=== PATIENT | female | born 2000 | race Caucasian/White ===

== ENCOUNTER 2023-05-06 09:56 | Emergency (ER) | payer BC, SELFPAY ==
[2023-05-06 10:03] VITALS: BP 123/78; PULSE 122; RESP 18; TEMP 38.4; O2SAT 96; BMI 32.8
--- NOTE | 2023-05-06 12:18 | CT_ITS ---
WS: [id number] CT ABDOMEN AND PELVIS WITH CONTRAST HISTORY: left flank and lower abd pain TECHNIQUE: Imaging performed of the abdomen and pelvis with IV contrast. Single phase imaging of the abdomen. Coronal and sagittal reformats are submitted. All CT scans at [facility] use at [address] one of these dose optimization techniques: automated exposure control; mA and/or kV adjustment per patient size (includes targeted exams where dose is matched to clinical indication); or iterative re construction. IV CONTRAST: Omnipaque 350; 100 mL IV. Oral contrast: No DLP: 1042.72 mGy.cm COMPARISON: None available. Lower thorax: Lung bases are clear. Heart is normal size. No hiatal hernia. Liver/biliary system: Normal size with no intrahepatic dilatation. Gallbladder: Normal. No gallstones or wall thickening. No pericholecystic fluid. Pancreas: Normal size pancreas and pancreatic duct. No adjacent inflammation. Spleen: Normal size spleen. No mass or infarct. Adrenal glands: Normal. Right kidney: Nonobstructing 2 mm calcification lower pole otherwise negative. Left kidney: Normal size kidney. There is mild perinephric stranding. Loss of the normal corticomedul linus junction involving several locations throughout the kidney. There is an area of decreased enhanc ement and attenuation which is rounded in the central kidney measuring 2.6 x 2.7 cm. Towards the supe rior pole there is additional area of decreased enhancement noted bilaterally. There is no obstructio n. Aorta: Normal. Lymphadenopathy: Small central mesenteric lymph nodes. Free fluid: None. GI tract: Unremarkable. Abdominal wall: Unremarkable abdominal wall. No hernia. Pelvis: No free fluid or adenopathy within the pelvis. Bones: Unremarkable. IMPRESSION: 1. Areas of decreased enhancement attenuation within the LEFT kidney. Findings are consistent with m oderate pyelonephritis with no obstructive uropathy. Developing abscess in the central LEFT renal cor stacey suspected. No liquefaction at this time. 2. Normal appendix. 3. No renal obstruction.
--- NOTE | 2023-05-06 12:20 | W.ED.EXTPRO ---
HPI - Extremity Problem General: Chief complaint: Extremity Injury, Lower Stated complaint: leg pain, left abd pain Time Seen by Provider: 05/06/23 09:59 History of Present Illness: This patient presents to the emergency department, by her family. She states that she has been ill since approximately Wednesday after being corrected by her significant other. She states that she has had left flank pain and now is having some bilateral hip and upper leg pain. She states that the back pain began initially. There was some is been associated nausea and vomiting with her symptoms. There is also been subjective fever. She has not had any other constitutional symptoms to include dysuria vaginal bleeding, cough, sore throat etc. She is normally in good health takes no daily medications. Her last menstrual period was 1 week ago. There is a remote history of kidney stones both in her history as well as in her family history. She has not had any abdominal surgeries. Denies any other exposure to infectious disease. He apparently was seen at [facility] yesterday and told she had said she had some abnormal labs but she cannot provide me those results and their labs do not cross into our system. Associated symptoms: Reports fever(s); Deny chest pain or rash Review of Systems Const: Reports: fever(s) and body aches Eyes: Denies: change in vision ENMT: Denies: throat pain, odynophagia, nasal discharge or nasal congestion Card: Denies: chest pain or palpitations Resp: Denies: dyspnea, productive cough or non-productive cough GI: Reports: abdominal pain, nausea and vomiting; Denies: diarrhea : Reports: flank pain Musc: Denies: neck pain, extremity swelling or muscle weakness Skin/Breast: Denies: rash Neuro: Denies: headache(s), numbness in extremities or weakness in extremities Endo: Denies: polyuria or polydipsia [facility] ED Female Reproductive History: Date of last menstrual period: 04/20/23 Physical Exam Narrative: EXAM NARRATIVE: She is alert no acute distress answers questions in a goal-directed fashion. Const: COMMON NORMALS: no acute distress, average body habitus and patient oriented x3 GENERAL APPEARANCE: cooperative and comfortable HENMT: COMMON NORMALS: normocephalic, Normal nasal mucous membranes and turbinates present and moist oral mucous membranes HEAD & SCALP: normocephalic NOSE: Normal nasal mucous membranes and turbinates present Eye: COMMON NORMALS: Equal, round and reactive pupils present, EOMs intact bilaterally and conjunctivae normal CONJUNCTIVA: Yes conjunctivae normal PUPIL: Yes Equal, round and reactive pupils present Neck/C-Spine: COMMON NORMALS: full ROM, no lymphadenopathy and supple Chest: COMMONS NORMALS: normal inspection of the chest and normal palpation of entire chest wall Resp: COMMON NORMALS: normal respiratory effort, No retractions, No use of accessory muscles and clear to auscultation bilaterally AUSCULTATION: clear to auscultation bilaterally Cardio: COMMON NORMALS: regular rate, regular rhythm, No murmurs present (Cardio) and Peripheral pulses 2+ throughout RATE: regular rate RHYTHM: regular rhythm PERIPHERAL PULSES: Peripheral pulses 2+ throughout GI: OTHER: She has tenderness to the left flank to palpation but no rebound or guarding to the remainder of her abdominal examination. There is no suprapubic tenderness or fullness. : BLADDER/KIDNEY EXAM: Yes CVA tenderness (Mild left) Back/Pelvis: COMMON NORMALS: thoracic and lumbar spine normal to inspection, no thoracic nor lumbar tenderness, thoraco-lumbar ROM normal and straight leg raise negative bilaterally GENERAL BACK: Yes CVA tenderness (Mild left) Extremity: COMMON NORMALS: normal to inspection, full ROM, capillary refill normal, no calf tenderness and no pedal edema Neuro: COMMON NORMALS: patient oriented x3, moves all extremities, no focal motor deficits and no sensory deficits noted CRANIAL NERVES: Yes CN normal except as noted Psych: COMMON NORMALS: mental status grossly normal Skin: COMMON NORMALS: no rashes or lesions noted and turgor normal GENERAL SKIN EXAM: no rashes or lesions noted and turgor normal Course Reevaluation(s): Reevaluation #1: Patient and family are informed of her findings. Concern is that she may be having an early developing abscess of the involved kidney per radiology report and the lack of allergy support precludes us admitting at this facility in case she needs percutaneous draining or other procedures for such developing abscess. We are attempting to locate a facility that has capacity. Currently we are on consideration at [facility] as well as [facility]. Patient and family were informed of transfer difficulties. She is currently clinically stable Time: 17:59 Consultations: Consultation #1: Patient was excepted at [facility] in [place] under Dr. Hernandez. Time: 18:18 Vital Signs: Vital signs: Vital Signs Temperature 101.2 F H 05/06/23 10:03 Pulse Rate 105 H 05/06/23 16:00 Respiratory Rate 17 05/06/23 16:00 Blood Pressure 125/66 05/06/23 16:00 Pulse Oximetry 96 05/06/23 16:00 Oxygen Delivery Me thod Room Air 05/06/23 16:00 MDM - Extremity (Nontraumatic) Medical Decision Making This patient presented to the emergency department with approximately 4 to 5-day history of progressive left flank pain associated with some radiation of pain down into both anterior legs. There was associated fever and nausea with vomiting and poor p.o. tolerance. She denied any contributory history other than the fact she had kidney stones as a younger teenager and there is a strong family history of kidney stones however she has not had any stone issues for the last 4 to 5 years. Clinical examination was was notable for her being febrile tachycardic with left flank tenderness. No other findings to suggest any other etiology to her symptoms at the time of this examination. Ancillary studies obtained revealed a leukocytosis and abnormal urinalysis and most specifically a CT scan which showed findings consistent with pyelonephritis but concerning for possible early cortical renal abscess. The patient received IV fluids, IV antibiotics and analgesics in the emergency department. Because of the concern about developing abscess and the lack of urology support at this facility a widening search for accepting facilities was undertaken. Eventually were able to find her an accepting physician at [facility]. Remained stable for transfer. Lab Data I reviewed the patient's lab results. 05/06/23 12:29 05/06/23 12:29 Laboratory Results WBC 19.19 10^3/uL (3.29-11.43) H 05/06/23 12:29 RBC 4.44 10^6/uL (3.85-5.65) 05/06/23 12:29 Hgb 13.00 g/dL (11.27-16.99) 05/06/23 12:29 Hct 37.7 % (36-47) 05/06/23 12: MCV 84.9 fl (85-98) L 05/06/23 12: MCH 29.3 pg (27-33) 05/06/23 12: MCHC 34.5 g/dL (30-55) 05/06/23 12: RDW 11.5 % (12.1-15.1) L 05/06/23 12: Plt Count 300 10^3/cmm (157-399) 05/06/23 12: MPV 10.5 fL (7.4-10.4) H 05/06/23 12: Neut % (Auto) 84.2 % 05/06/23 12: Lymph % (Auto) 5.6 % 05/06/23 12: [place] % (Auto) 9.2 % 05/06/23 12: Eos % (Auto) 0.0 % 05/06/23 12: Baso % (Auto) 0.2 % 05/06/23 12: Neut # (Auto) 16.17 10^3/uL (1.8-7.7) H 05/06/23 12: Lymph # (Auto) 1.1 10^3/uL (0.8-4.8) 05/06/23 12: [place] # (Auto) 1.8 10^3/uL (0.2-0.9) H 05/06/23 12: Eos # (Auto) 0.0 10^3/uL (0.0-0.8) 05/06/23 12: Baso # (Auto) 0.0 10^3/uL (0.0-0.1) 05/06/23 12: Nucleated RBC % (auto) 0 % 05/06/23 12: Nucleated RBCs # 0.0 /100WBC 05/06/23 12: Sodium 132 mmol/L (136-145) L 05/06/23 12: Potassium 3.8 mmol/L (3.5-5.1) 05/06/23 12: Chloride 98 mmol/L (98-107) 05/06/23 12: Carbon Dioxide 23 mmol/L (22-29) 05/06/23 12: Anion Gap 14.8 (5-19) 05/06/23 12: BUN 8 mg/dL (6-20) 05/06/23 12: Creatinine 0.7 mg/dL (0.5-0.9) 05/06/23 12: GFR Calculation 103.7 mL/min (90-130) 05/06/23 12: Glucose 118 mg/dL (65-115) H 05/06/23 12: Calculated Osmolality 273 mOsm/kg (285-295) L 05/06/23 12: Lactic Acid 1.0 mmol/L (0.5-2.2) 05/06/23 12: Calcium 9.5 mg/dL (8.5-10.5) 05/06/23 12: Total Bilirubin 1.0 mg/dL (0.15-1.2) 05/06/23 12: AST 21 U/L (0-32) 05/06/23 12: ALT 40 U/L (0-33) H 05/06/23 12: Alkaline Phosphatase 199 U/L (35-105) H 05/06/23 12: Total Protein 7.9 g/dL (6.6-8.7) 05/06/23 12: Albumin 4.1 g/dL (3.5-5.2) 05/06/23: Globulin 3.8 g/dL (1.3-4.6) 05/06/23 12: HCG, Qual Negative (Negative) 05/06/23 12: Urine Color Yellow (Yellow) 05/06/23 15: Urine Appearance Sl hazy (CLEAR) A 05/06/23 15:03 Urine pH 5 (5-7) 05/06/23 15:03 Ur Specific [place] 1.010 (1.005-1.030) 05/06/23 15:03 Urine Protein 1+ (Negative) H 05/06/23 15:03 Urine Glucose (UA) Norm (Normal) 05/06/23 15:03 Urine Ketones 2+ (Negative) H 05/06/23 15:03 Urine Blood 2+ (Negative) H 05/06/23 15:03 Urine Nitrate Negative (Negative) 05/06/23 15: Urine Bilirubin Neg (Negative) 05/06/23 15:03 Urine Urobilinogen 4 mg/dL (Negative) H 05/06/23 15:03 Ur Leukocyte Esterase Trace (Negative) H 05/06/23 15:03 Urine RBC 0-4 /hpf (0-2) H 05/06/23 15:03 Urine WBC 0-4 /hpf (0-5) H 05/06/23 15:03 Ur Squamous Epith Cells 10-15 /hpf (0-5) H 05/06/23 15:03 Ur Transition Epith Cell 0-4 /hpf 05/06/23 15:03 Amorphous Sediment Not Reportable 05/06/23 15:03 Urine Bacteria Trace /hpf (NONE) 05/06/23 15:03 Urine Mucus Trace /hpf 05/06/23 15:03 All radiology interpretation(s) finalized by discharge Discharge Plan Discharge Patient Disposition: Xfer Short-Term Hosp Clinical Impression: Pyelonephritis of left kidney Condition: Stable Coding Level of Care Code ED Sales And Production Manager for Niki More
[2023-05-06 12:43] LABS: Basophils % 0.2 %; Hematocrit 37.7 % (36-47); Lymphocytes # 1.1 10^3/uL (0.8-4.8); Lymphocytes % 5.6 %; Mean Corpuscular HGB Conc 34.5 g/dL (30-55); Mean Corpuscular Hemoglobin 29.3 pg (27-33); Mean Corpuscular Volume 84.9 fl (85-98); Mean Platelet Volume 10.5 fL (7.4-10.4); Monocytes # 1.8 10^3/uL (0.2-0.9); Monocytes % 9.2 %; Neutrophils # 16.17 10^3/uL (1.8-7.7); Neutrophils % 84.2 %; Nucleated Red Blood Cells % 0 %; Platelet Count 300 10^3/cmm (157-399); Red Blood Count 4.44 10^6/uL (3.85-5.65); Red Cell Distribution Width 11.5 % (12.1-15.1); White Blood Count 19.19 10^3/uL (3.29-11.43)
[2023-05-06 12:56] LABS: Alanine Aminotransferase 40 U/L (0-33); Albumin Level 4.1 g/dL (3.5-5.2); Alkaline Phosphatase 199 U/L (35-105); Anion Gap 14.8 (5-19); Aspartate Amino Transferase 21 U/L (0-32); Blood Urea Nitrogen 8 mg/dL (6-20); Calcium 9.5 mg/dL (8.5-10.5); Carbon Dioxide 23 mmol/L (22-29); Chloride 98 mmol/L (98-107); Globulin 3.8 g/dL (1.3-4.6); Glomerular Filtration Rate 103.7 mL/min (90-130); Glucose 118 mg/dL (65-115); Osmolality Calculated 273 mOsm/kg (285-295); Potassium 3.8 mmol/L (3.5-5.1); Sodium 132 mmol/L (136-145); Total Protein 7.9 g/dL (6.6-8.7)
[2023-05-06] MEDS: sodium chloride 0.9% 1,000 ML 999 ML IV ×2 (13:11→18:42)
[2023-05-06 13:28] LABS: HCG, Serum Qual Negative (Negative)
[2023-05-06] MEDS: iohexol 350 mg/mL 500 mL Btl (per mL) IV (13:52)
[2023-05-06 15:14] LABS: Add Urine Microscopic? YES; Bilirubin Urine Neg (Negative); Blood Urine 2+ (Negative); Glucose Urine UA Norm (Normal); Ketones Urine 2+ (Negative); Leukocyte Esterase Urine Trace (Negative); Nitrate Urine Negative (Negative); Protein Urine 1+ (Negative); Urine Appearance SL Hazy (CLEAR); Urine Color Yellow (Yellow); Urobilinogen Urine 4 mg/dL (Negative); pH Urine 5 (5-7)
[2023-05-06] MEDS: cefTRIAXone 2,000 MG in sodium chloride 0.9% (plus) 50 ML 100 MG IV (15:18)
[2023-05-06 15:31] LABS: Add Urine Culture? No; Bacteria Urine TRACE /hpf; Mucus Urine TRACE /hpf; RBC Urine 0-4 /hpf (0-2); Transitional Epi Cells Urine 0-4 /hpf; WBC Urine 0-4 /hpf (0-5)
[2023-05-06 16:00] VITALS: BP 125/66; PULSE 105; RESP 17; O2SAT 96
[2023-05-06 18:00] VITALS: BP 126/68; PULSE 116; RESP 16; O2SAT 99
[2023-05-06 20:16] VITALS: BP 111/68; PULSE 111; O2SAT 99
== END 2023-05-06 20:17 | disposition short-term general hospital (02) ==
PROVIDERS: Emergency Provider Emergency Medicine
DX: N12 Tubulo-interstitial nephritis, not specified as acute or chronic (principal)
CPT/HCPCS: 36415; 74177; 80053; 81001; 83605; 84703; 85025; 87040; 87252; 96365; 99285; J0696; J7030; Q9967